=== PATIENT | female | born 1965 | race Caucasian/White ===

== ENCOUNTER 2017-01-30 12:33 | Day surgery (SDC) | payer OTHER ==
[~2017-01-30 12:33] MED LIST: IV START KIT ONE; LACTATED RINGERS 1,000 ML ONE
[2017-01-30] MEDS ORDERED: PROPOFOL 40 ML IV ONE (12:57)
[2017-01-30] MEDS ORDERED: PROPOFOL 20 ML IV ONE (14:13)
[2017-01-30] MEDS ORDERED: LACTATED RINGERS 1,000 ML IV SCH (14:30)
--- NOTE | 2017-02-04 13:39 | SURGPATH ---
[facility] [address] [place] [id number] Patient Name: JANNET JAIMES MR#: [id number] : 1965 Gender: F Specimen #: [id number] Collected: 01/30/2017 Received: 02/01/2017 Reported: 02/04/2017 Submitting Phys: JOSE LAGUERRE Copy To Phys: EVA FOOTE [facility] Clinical History / Pre-Operative Diagnosis: Screening Specimen Source / Surgical Procedure Performed: Ascending/right colon polyp Interpretation: ASCENDING COLON, POLYP, BIOPSY: - BENIGN MUCOSAL TAG Electronically Signed Out [place] M.D. Gross Description: The specimen is received in one formalin filled container, labeled with the patient's name and "ascending colon polyp". The specimen consists of one irregularly shaped fragment(s) of ulloa tissue aggregating to 0.5 x 0.3 x 0.2 cm. The specimen is entirely submitted in cassette A. Microscopic Description: Sections show a polypoid fragment of colonic mucosa with a large lymphoid aggregate. The lymphoid aggregate has a follicular architecture without atypia. No dysplasia is present. 1: [id number] K63.89
== END 2017-01-30 15:01 | disposition home or self-care (01) ==
LOC: SDC 12:33
PROVIDERS: ATTEND Surgery
PROC: 0DBK8ZX Excision of Ascending Colon, Via Natural or Artificial Opening Endoscopic, Diagnostic (ICD-10-PCS; principal; 2017-01-30)
DX: Z12.11 Encounter for screening for malignant neoplasm of colon (principal); K63.89 Other specified diseases of intestine; H81.09 Meniere's disease, unspecified ear
CPT/HCPCS: 45380; J7120